=== PATIENT | male | born 1950 | race Caucasian/White ===

== ENCOUNTER 2021-06-09 12:42 | Outpatient (CLI) | payer MEDICARE, SELFPAY ==
--- NOTE | ~2021-06-09 | CT_ITS ---
EXAMINATION: CT knee LT w con DATE: 06/09/2021 13:38 INDICATION: Left knee pain TECHNIQUE: High resolution computed tomography (CT) arthrogram of the left knee was performed with in tra-articular contrast but without intravenous contrast. Details of the joint injection have been dic tated separately. Additional sagittal and coronal reconstructions were performed. Automated exposure control and iterative reconstruction technique were employed. The dose-length product was 412.71 mGy- cm. COMPARISON: None FINDINGS: Bone alignment is normal. No fracture. Medial compartment: Tear at the lateral aspect of the medial meniscus with small meniscal flap along the free edge as wel l as shallow tear along the superior articular surface in the peripheral third. Chondral surface irre gularity with shallow chondral fissuring at the central aspect of the medial tibial plateau and anter ior weightbearing medial femoral condyle. Lateral compartment: There is intrasubstance contrast within the posterior horn of the lateral meniscus consistent with a meniscal tear of indeterminate morphology with no evident tract communicating with the intra-articula r contrast. There is however an irregular contour to the inferior surface of the meniscus and the per ipheral third tear also appears to be a tear of the inferior meniscotibial ligament. Deep chondral ul ceration along the posterior weightbearing lateral femoral condyle as well as a central weightbearing lateral femoral condyle, both regions with underlying tiny central subchondral osteophytes. There is some cystic change along the posterior medial rim of the lateral tibial plateau. The medial compartm ent there is an Patellofemoral compartment: There is partial thickness cartilage loss throughout the patella which appears to involve be >50% of the cartilage thickness at the apical ridge and medial side of the lateral facet, the latter with a t iny central subchondral osteophyte. There are few tiny subarticular cystlike changes underlying a araceli p chondral fissure at the more lateral aspect of the lateral patellar facet. Shallow chondral fissure along the trochlear groove. Remaining trochlear cartilage is relatively preserved. IMPRESSION: 1. Tears at the posterior horns of both medial and lateral menisci as detailed above. 2. 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 IMPRESSION: 1. Tears at the posterior horns of both medial and lateral menisci as detailed above. 2. Mild tricompartmental osteoarthritis with regions of high-grade chondromalac ia in the lateral and patellofemoral compartments and moderate grade chondromal acia in the medial compartment
--- NOTE | ~2021-06-09 | XR_ITS ---
EXAMINATION: XR fl inj knee LT for MR/CT DATE: 06/09/2021 13:38 INDICATION: Left knee pain TECHNIQUE: A time-out was performed to verify the patient's name, date of , and procedure to b e performed. The procedure including the risks, benefits, and alternatives was discussed with the pat ient. Risks discussed included bleeding and infection. The patient understood the risks and agreed to proceed. The skin overlying the left knee joint was prepped and draped in usual sterile fashion. A nesthetic was administered with 1% lidocaine subcutaneously. A 22 G needle was advanced under fluoro scopic guidance into the joint. 42 mL of a 2:3:1 mixture of Omnipaque-240: Sterile saline: 1% lidocai ne was instilled with intra-articular administration confirmed with intermittent fluoroscopy.. The ne edle was removed and the entry site was cleaned and dressed. There were no immediate complications. Fluoroscopy exposure time was 0.1 minutes. The total number of images was 7. FINDINGS: Real-time fluoroscopy demonstrates the needle in the left knee joint. IMPRESSION: 1. Successful left knee joint injection of an iodinated contrast [facility] be [facility] separately. Reviewed, dictated and finalized at location A. IMPRESSION: 1. Successful left knee joint injection of an iodinated contrast mixed for subs equent CT arthrogram which will be dictated separately.
== END 2021-06-09 12:43 | disposition home or self-care (01) ==
PROVIDERS: Visit Provider Orthopaedic Surgery
DX: M25.562 Pain in left knee (principal); S83.282A Other tear of lateral meniscus, current injury, left knee, initial encounter; S83.242A Other tear of medial meniscus, current injury, left knee, initial encounter
CPT/HCPCS: 20610; 73701; 77002; Q9966

== ENCOUNTER 2021-08-15 00:41 | Day surgery (SDC) | payer MEDICARE, SELFPAY ==
[2021-08-11 13:30] VITALS: BMI 29.2
--- NOTE | 2021-08-11 14:28 | PC.NURSE ---
Report to the Outpatient Waiting Room, entrance under the green pavilion located off [facility], at time _0830_ on date _08/15/21_. OR Time: _1030_. - You and your visitor will be asked a series of questions to screen for COVID 19 for your protection. - Only one visitor is allowed at this time. - The patient visitor is requested to leave or wait in car when not with patient. - A mask is required within the hospital. Patients may have clear liquids (water, carbonated beverages, clear teas, apple juice) until 3 hours prior to surgery (0730 AM) with a maximum of 20 ounces. - No food from midnight until time of surgery - Infants may have breast milk until 4 hours before surgery, formula 6 hours prior to surgery. - Children will be allowed to drink immediately following surgery. If applicable, please bring a bottle or sippy cup to assist with drinking. Juice, water, soda, and popsicles are readily available. For infants on formula, please bring formula the day of surgery. Pacifiers are allowed. Take the following medications with a SIP of water the morning of surgery: _AMLODIPINE, EPLERENONE, METOPROLOL_ Medications to discontinue per DR. SHEMAR SANTOS 2 DAYS PRIOR TO SURGERY, Date to take last dose 08/12/21_ Please no make-up, nail latvian, hairspray, perfume, deodorant, or body powder the day of surgery. No jewelry (including any body piercings) or valuables the day of surgery, leave them at home. Please take a shower or bath the night before, or the morning of, surgery with an antibacterial soap. Wear comfortable, loose fitting clothing. Children are encouraged to wear pajamas. - Jewelry must be removed prior to entering the operating room. Rings and piercings that are not removed may be cut off. - The hospital will not accept responsibility for valuables. - Please leave all valuables, including medications, at home the day of surgery. If you are going home after surgery, a licensed truck driver flatbed must drive you home. - NO public transportation without another adult. - We recommend that an adult stay with you for 24 hours following discharge. - We also recommend that you do not drive, make important decision, drink alcoholic beverages, or take any drugs that were not prescribed by your health care provider for at least 24 hours after your discharge time. For Pediatric surgeries, we recommend two adults accompany the child home (only one inside the building at this time). Follow any additional instructions given to you from your surgeon. If you or anyone in your household have experienced Covid symptoms in the past week, please notify your surgeon or the nurse liaison at the phone number below for possible testing. Telephone instructions given to PT and asked if any additional questions and then verbalized understanding. Patient advised to call surgeon office or pre surgery nurse liaison [phone] if any additional questions.
[2021-08-15] VITALS (9 sets, daily range): BP systolic 117–142; BP diastolic 70–95; PULSE 52–64; RESP 12–20; TEMP 36.4; O2SAT 98–100
--- NOTE | 2021-08-15 07:06 | WPDHPUPDATE1 ---
History and Physical Update Update Date/Time: 08/15/21 07:06 History and Physical has been reviewed, including an updated exam of the patient. There are NO changes in the patient's condition. Risks, benefits, and alternatives have been discussed and questions answered. Patient agrees to proceed with procedure.
[2021-08-15] MEDS: LACTATED RINGERS 1,000 ML 30 ML IV CONT (08:55)
--- NOTE | 2021-08-15 09:00 | WPDANESEPPF ---
Anes - Initial Pre Proc Eval Procedure: Operation Date: 08/15/21 10:30 Proposed Procedures p Left Arthroscopic Partial Medial and Lateral Meniscectomy - Abimael Kern MD Date/Time: 08/15/21 09:00 Surgeon: Abimael Kern MD Pre Op Diagnosis: Medial & Lateral Menisus Tears Left Knee Patient Data Age: 71 Gender: M Height: 1.83 m Weight: 101.2 kg Last Vital Signs Pulse 64 08/15/21 08:37 Resp 18 08/15/21 08:37 BP 142/82 H 08/15/21 08:37 Pulse Ox 100 08/15/21 08:37 O2 Del Method Room Air 08/15/21 08:37 Allergies Allergy/AdvReac Type Severity Reaction Status Date / Time Sulfa (Sulfonamide Allergy Unknown Rash Verified 08/15/21 08:35 Antibiotics) Home Medications Medication Instructions Recorded Confirmed Type amlodipine 2.5 mg tablet 2.5 mg PO QAM 04/09/21 08/15/21 History apixaban 5 mg tablet (Eliquis) 5 mg PO BID 04/09/21 08/15/21 History atorvastatin 40 mg tablet 40 mg PO HS 04/09/21 08/15/21 History eplerenone 25 mg tablet 25 mg PO QAM 04/09/21 08/15/21 History metoprolol succinate 100 mg 100 mg PO BID 04/09/21 08/15/21 History tablet,extended release 24 hr dapagliflozin 10 mg tablet 10 mg PO QAM 05/05/21 08/15/21 History ([facility]) losartan 50 mg tablet 100 mg PO QAM 06/11/21 08/15/21 History Patient hx anesthesia problems: none Family hx anesthesia problems: none Results Review: All pre-operative results and documents have been reviewed as part of the pre-operative evaluation. [facility] Past Medical History Medical History History of bruising easily History of cardiac pacemaker (~06/25/14) Cassandra DAVIDT - [id number] Siello S 52 - [id number] Siello S 59 - [id number] Physician: Miguel Landis MD History of stress test Hypertension Sleep apnea Surgical History Surgical History History of cardiac radiofrequency ablation (~05/11/19) History of colon surgery Bowel Obstruction Repair History of lumbar surgery (~2005) L4-L5 Particles Removed History of tooth extraction History of transurethral resection of prostate Family History Family History Unknown Malignant neoplasm of prostate Social History Social History Smoking status: Never smoker Second hand tobacco smoke exposure: No Alcohol intake: never Substance use: never Substance use type: does not use Living arrangements: with family Spiritual care concerns: No Anes - Eval Final PreProcedure Day of Procedure 08/15/21 09:00 Patient weight: obese Heart: regular rate and rhythm Lungs: clear to auscultation Airway: Mallampati scale class II Neurological: alert and oriented Last oral intake: >/= 8 hours ASA classification: III Emergent: no Anesthetic plan: proceed Anesthesia type and monitoring: general LMA and standard monitoring Results Review: All pre-operative results and documents have been reviewed as part of the pre-operative evaluation. Informed Consent: The patient's anesthetic plan and its attendant risks and benefits were discussed with the patient/family/POA. Questions were solicited and answers provided to the satisfaction of the patient/family/POA.
[2021-08-15] MEDS: KETOROLAC 15 MG/ML VIAL (*BKC) IV PUSH (09:01)
[2021-08-15] MEDS: ACETAMINOPHEN 500 MG TABLET 1000 MG PO (09:01)
[2021-08-15 09:05] LABS: Glucose Point of Care 139 mg/dl (65-105)
--- NOTE | 2021-08-15 09:27 | SUR.PREOP ---
PT STATES HE WAS INSTRUCTED BY DR STATON NOT TO USE CRUTCHES POST OPERATIVELY.
[2021-08-15] MEDS: ceFAZolin 2 GM/D5W 50 ML 2 GM/50 ML BAG IVPB (10:44)
[2021-08-15] MEDS: BUPIVACAINE HCL 0.5% PF 30 ML VIAL INFILTRATE (11:11)
[2021-08-15 12:11] LABS: Glucose Point of Care 115 mg/dl (65-105)
--- NOTE | 2021-08-15 16:12 | P.OP_ITS ---
Procedure Note - Detailed Date of Procedure 08/15/21 Pre-op Diagnosis Medial & Lateral Menisus Tears Left Knee Post-op Diagnosis Other (Medial meniscus tear, left knee.) Procedure Performed Arthroscopic partial medial meniscectomy, left knee. Surgeon Abimael Kern MD [employer]umber [employer]acker Beth Stone PA-C Anesthesia General Findings Extensive posterior horn and medial, medial meniscus tear. Subtotal meniscectomy performed. The lateral meniscus only had minimal fraying on the inner margin without distinct tearing. Medial femur chondromalacia grade 2, medial tibia grade 2. Lateral femur chondromalacia grade 0, lateral tibia grade 0. Patellar grade 0, trochlea grade 1. Description of Procedure The patient was identified and the surgical site confirmed and signed in the preoperative holding area. Antibiotics were started per protocol. She was brought to the operative room and transferred to the OR table. A general anesthetic was administered. Supine position with the operative lower extremity position in the leg gannon after placement of a well padded tourniquet. The leg support was lowered and the contralateral limb was supported with a soft bolster. The knee was prepped and draped in the usual sterile fashion. A time-o ut was performed. The portal sites were marked and infiltrated with 0.5% Marcaine 20 mL. The limb was exsanguinated and the tourniquet inflated to 300 mL Hg. Standard inferolateral and inferomedial portals were established. Inflow was obtained with the saline pump. The camera was introduced. Diagnostic inspection of the joint was accomplished. The meniscus was debrided with the arthroscopic shaver and punches until stable. The arthroscopic instruments were removed. The tourniquet released and wounds closed with subcutaneous 4-0 Monocryl absorbable suture. Steri strips and a sterile dressing were applied. A light elastic wrap was placed. The patient was extubated and brought to the recovery room in stable condition. Estimated Blood Loss -5.0 Drains No Complications No immediate complications Condition Stable Disposition PACU [facility] Billing Surgery - Charge Forward: Surgery Billing
== END 2021-08-15 13:20 | disposition home or self-care (01) ==
PROVIDERS: Visit Provider Orthopaedic Surgery
PROC: (CPT 29870; principal; 2021-08-15 10:30)
DX: S83.242A Other tear of medial meniscus, current injury, left knee, initial encounter (principal); X50.0XXA Overexertion from strenuous movement or load, initial encounter; I10 Essential (primary) hypertension; G47.30 Sleep apnea, unspecified; Z95.0 Presence of cardiac pacemaker; Z79.01 Long term (current) use of anticoagulants; Z79.84 Long term (current) use of oral hypoglycemic drugs; E66.9 Obesity, unspecified; Z68.30 Body mass index [BMI] 30.0-30.9, adult
CPT/HCPCS: 29881; 82948; A9270; J0690; J1100; J1885; J2250; J2405; J2704; J3010; J7120